=== PATIENT | male | born 1970 | race Hispanic/Latino ===

== ENCOUNTER 2019-01-22 16:12 | Emergency (ER) | payer SELFPAY ==
--- NOTE | 2019-01-22 17:13 | ER ---
Nurse's Notes [facility] Name: Trev Landa Age: 48 yrs Sex: Male : 1970 Arrival Date: 01/22/2019 Time: 16:13 Bed 12 Private MD: Diagnosis: Essential (primary) hypertension;Headache Presentation: 01/22 16:25 Presenting complaint: Headache x 2 days. Home Bp 185/105. Transition of care: patient hb was not received from another setting of care. 16:25 Method Of Arrival: Ambulatory hb 16:27 Onset of symptoms was January 21, 2019. Risk Assessment: Do you want to hurt yourself or hb someone else? Patient reports no desire to harm self or others. Care prior to arrival: None. 16:27 Acuity: MELE 4 hb 17:55 Initial Sepsis Screen: Does the patient meet any 2 criteria? No. Patient's initial mg2 sepsis screen is negative. Does the patient have a suspected source of infection? No. Patient's initial sepsis screen is negative. Historical: - Allergies: 16:28 No Known Allergies; hb - Home Meds: 16:28 amlodipine oral [Active]; hb - PMHx: 16:28 Hypertension; hb - Immunization history:: Adult Immunizations up to date. - Social history:: Smoking status: Patient/guardian denies using tobacco. - Ebola Screening: : No symptoms or risks identified at this time. Screenin:54 Abuse screen: Denies threats or abuse. Denies injuries from another. Nutritional mg2 screening: No deficits noted. Tuberculosis screening: No symptoms or risk factors identified. Fall Risk None identified. Assessment: 17:53 General: Appears in no apparent distress. comfortable, Behavior is calm, cooperative. mg2 Pain: Denies pain. Neuro: Level of Consciousness is awake, alert, obeys commands, Oriented to person, place, time, situation. Cardiovascular: Capillary refill < 3 seconds Patient's skin is warm and dry. Respiratory: Airway is patent Respiratory effort is even, unlabored, Respiratory pattern is regular, symmetrical. GI: No signs and/or symptoms were reported involving the gastrointestinal system. : No signs and/or symptoms were reported regarding the genitourinary system. EENT: No signs and/or symptoms were reported regarding the EENT system. Derm: Skin is intact, is healthy with good turgor, Skin is pink, warm \T\ dry. normal. Musculoskeletal: Circulation, motion, and sensation intact. Capillary refill < 3 seconds. Vital Signs: 16:26 BP 156 / 89; Pulse 59; Resp 16; Temp 97.8; Pulse Ox 100% on R/A; Pain 6/10; hb 17:54 BP 154 / 81; Pulse 58; Resp 18; Pulse Ox 100% on R/A; Pain 0/10; mg2 ED Course: 16:13 Patient arrived in ED. as 16:27 Triage completed. hb 16:27 Arm band placed on. hb 16:55 Reynaldo Morse MD is Attending Physician. snw 16:55 Karla Florence FNP-C is PHCP. snw 17:28 Simeon Allen, ZEKE is Primary Nurse. mg2 17:55 Patient has correct armband on for positive identification. mg2 17:55 No provider procedures requiring assistance completed. Patient did not have IV access mg2 during this emergency room visit. Administered Medications: No medications were administered Outcome: 17:13 Discharge ordered by MD. snw 17:55 Discharged to home ambulatory. mg2 17:55 Condition: stable 17:55 Discharge instructions given to patient, Instructed on discharge instructions, follow up and referral plans. Demonstrated understanding of instructions, follow-up care. 17:55 Patient left the ED. mg2 Signatures: Karla Florence FNP-C FNP-Nichole Harrell as Dolly Lawson RN RN Simeon Allen, ZEKE RN mg2 Corrections: (The following items were deleted from the chart) 16:24 16:24 Patient's name was called from ER lobby. No response. hb hb
--- NOTE | 2019-01-22 17:13 | EDPHYS ---
Physician Documentation [facility] Name: Trev Landa Age: 48 yrs Sex: Male : 1970 Arrival Date: 01/22/2019 Time: 16:13 Bed 12 Private MD: ED Physician Reynaldo Morse HPI: 01/22 17:16 This 48 yrs old Male presents to ER via Ambulatory with complaints of High snw Blood Pressure, Headache. 17:16 The patient has elevated blood pressure and discovered this at home. Onset: The snw symptoms/episode began/occurred suddenly. Modifying factors: The symptoms are aggravated by movement. Associated signs and symptoms: Pertinent positives: headache. Severity of symptoms: At its worst the blood pressure was mild, moderate. The patient has not experienced similar symptoms in the past. It is unknown whether or not the patient has recently seen a physician. Historical: - Allergies: 16:28 No Known Allergies; hb - Home Meds: 16:28 amlodipine oral [Active]; hb - PMHx: 16:28 Hypertension; hb - Immunization history:: Adult Immunizations up to date. - Social history:: Smoking status: Patient/guardian denies using tobacco. - Ebola Screening: : No symptoms or risks identified at this time. ROS: 17:15 Constitutional: Negative for fever, chills, and weight loss, Eyes: Negative for injury, snw pain, redness, and discharge, ENT: Negative for injury, pain, and discharge, Neck: Negative for injury, pain, and swelling, Cardiovascular: Negative for chest pain, palpitations, and edema, Respiratory: Negative for shortness of breath, cough, wheezing, and pleuritic chest pain, Abdomen/GI: Negative for abdominal pain, nausea, vomiting, diarrhea, and constipation, Back: Negative for injury and pain, : Negative for injury, bleeding, discharge, and swelling, MS/Extremity: Negative for injury and deformity, Skin: Negative for injury, rash, and discoloration, Psych: Negative for depression, anxiety, suicide ideation, homicidal ideation, and hallucinations. 17:15 Neuro: Positive for headache, visual changes. Exam: 17:15 Constitutional: This is a well developed, well nourished patient who is awake, alert, snw and in no acute distress. Head/Face: Normocephalic, atraumatic. Eyes: Pupils equal round and reactive to light, extra-ocular motions intact. Lids and lashes normal. Conjunctiva and sclera are non-icteric and not injected. Cornea within normal limits. Periorbital areas with no swelling, redness, or edema. ENT: Nares patent. No nasal discharge, no septal abnormalities noted. Tympanic membranes are normal and external auditory canals are clear. Oropharynx with no redness, swelling, or masses, exudates, or evidence of obstruction, uvula midline. Mucous membranes moist. Neck: Trachea midline, no thyromegaly or masses palpated, and no cervical lymphadenopathy. Supple, full range of motion without nuchal rigidity, or vertebral point tenderness. No Meningismus. Chest/axilla: Normal chest wall appearance and motion. Nontender with no deformity. No lesions are appreciated. Cardiovascular: Regular rate and rhythm with a normal S1 and S2. No gallops, murmurs, or rubs. Normal PMI, no JVD. No pulse deficits. Respiratory: Lungs have equal breath sounds bilaterally, clear to auscultation and percussion. No rales, rhonchi or wheezes noted. No increased work of breathing, no retractions or nasal flaring. Abdomen/GI: Soft, non-tender, with normal bowel sounds. No distension or tympany. No guarding or rebound. No evidence of tenderness throughout. Back: No spinal tenderness. No costovertebral tenderness. Full range of motion. Skin: Warm, dry with normal turgor. Normal color with no rashes, no lesions, and no evidence of cellulitis. MS/ Extremity: Pulses equal, no cyanosis. Neurovascular intact. Full, normal range of motion. Neuro: Awake and alert, GCS 15, oriented to person, place, time, and situation. Cranial nerves II-XII grossly intact. Motor strength 5/5 in all extremities. Sensory grossly intact. Cerebellar exam normal. Normal gait. Psych: Awake, alert, with orientation to person, place and time. Behavior, mood, and affect are within normal limits. Vital Signs: 16:26 BP 156 / 89; Pulse 59; Resp 16; Temp 97.8; Pulse Ox 100% on R/A; Pain 6/10; hb 17:54 BP 154 / 81; Pulse 58; Resp 18; Pulse Ox 100% on R/A; Pain 0/10; mg2 MDM: 16:55 Patient medically screened. snw 17:15 Data reviewed: vital signs, nurses notes. Data interpreted: Pulse oximetry: on room air snw is 100 %. Interpretation: normal. Counseling: I had a detailed discussion with the patient and/or guardian regarding: the historical points, exam findings, and any diagnostic results supporting the discharge/admit diagnosis, the need for outpatient follow up, to return to the emergency department if symptoms worsen or persist or if there are any questions or concerns that arise at home. Special discussion: I have referred the patient to see his PCP for further evaluation of high blood pressure. Based on the history and exam findings, there is no indication for further emergent testing or inpatient evaluation. I discussed with the patient/guardian the need to see the primary care provider for further evaluation of the symptoms. Administered Medications: No medications were administered Disposition: 18:03 Co-signature as Attending Physician, Reynaldo Morse MD. rn Disposition: 01/22/19 17:13 Discharged to Home. Impression: Essential (primary) hypertension, Headache. - Condition is Stable. - Discharge Instructions: Hypertension, How to Take Your Blood Pressure, [id number], Managing Your Hypertension. - Work release form, Medication Reconciliation Form, Thank You Letter, Antibiotic Education, Prescription Opioid Use form. - Follow up: Private Physician; When: 2 - 3 days; Reason: Recheck today's complaints, Continuance of care, Re-evaluation by your physician. Follow up: Emergency Department; When: As needed; Reason: Worsening of condition. - Notes: Please avoid multi-symptom cold medications. Decongestants will increase blood pressure. Signatures: Karla Florence, BORDER PATROL AGENT-C BORDER PATROL AGENT-Csnw Reynaldo Morse MD MD rn Baxter, Heather, RN RN Simeon Allen RN RN mg2 Corrections: (The following items were deleted from the chart) 17:55 17:13 01/22/2019 17:13 Discharged to Home. Impression: Essential (primary) mg2 hypertension; Headache. Condition is Stable. Forms are Medication Reconciliation Form, Thank You Letter, Antibiotic Education, Prescription Opioid Use. Follow up: Private Physician; When: 2 - 3 days; Reason: Recheck today's complaints, Continuance of care, Re-evaluation by your physician. Follow up: Emergency Department; When: As needed; Reason: Worsening of condition. snw
== END 2019-01-22 17:55 | disposition home or self-care (01) ==
LOC: ER 16:12
DX: R51 Headache (principal); I10 Essential (primary) hypertension
CPT/HCPCS: 99281